=== PATIENT | male | born 1985 | race Caucasian/White ===

== ENCOUNTER 2023-01-11 13:42 | Emergency (ER) | payer MEDICAID, SELFPAY ==
[2023-01-11 14:17] VITALS: BP 130/82; PULSE 130; O2SAT 95; BMI 25.8
--- NOTE | 2023-01-11 14:19 | PC.NURSE ---
pt currently getting changed over by security
--- NOTE | 2023-01-11 14:37 | PC.NURSE ---
pt currently changed over into hospital attire at this time. vss and up to date. pt currently nodding off while this RN asks questions. pinpoint pupils noted at this time. pt denies an illicit drug use at this time. resting comfortably in no apparent distress. respirations even and unlabored.
[2023-01-11 14:48] VITALS: BP 117/57; PULSE 99; RESP 14; O2SAT 93
--- NOTE | 2023-01-11 14:53 | PC.NURSE ---
COWS = 5. CIWA not applicable to pt as he states that he does not drink alcohol. pt swaying back and forth/nodding out at this time. respirations even and unlabored.
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
== END 2023-01-11 15:50 | disposition home or self-care (01) ==
PROVIDERS: Emergency Provider Emergency Medicine
DX: Z04.1 Encounter for examination and observation following transport accident (principal); F11.20 Opioid dependence, uncomplicated
CPT/HCPCS: 99284